=== PATIENT | female | born 1950 | race Asian ===

== ENCOUNTER 2017-04-02 15:17 | Inpatient (IN) | payer MEDICARE, BC ==
[~2017-04-02] VITALS: Ht 170.2 cm; Wt 68.0 kg
[2017-04-02 15:30] VITALS: BP 120/52
--- NOTE | 2017-04-02 15:30 | Emergency Room Report ---
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 Presenting with abdominal pain Patient was at surgeons office today, had drain removed, 20 minutes after and she drained was removed the patient experienced intense throbbing right lower cautery pain. Leroy very cold and clammy. Subjective chills. Pain has improved since coming to the emergency room. Some nausea no vomiting. Patient states that prior to the removal of the drain she had regular postop pain, but this pain is very different Allergies: Coded Allergies: CIPROFLOXACIN (Verified Allergy, Unknown, 04/02/17) PENICILLINS (Verified Allergy, Unknown, 04/02/17) SULFA (SULFONAMIDE ANTIBIOTICS) (Verified Allergy, Unknown, 04/02/17) Patient History Past Medical History: see triage record Past Surgical History: none Pertinent Family History: none Last Menstrual Period: n/a Reviewed Nursing Documentation: PMH: Agreed, PSxH: Agreed Nursing Documentation-PMH Past Medical History: No History, Except For Hx Diabetes: Yes - dm2-insulin dep Review of Systems All Other Systems: negative except mentioned in HPI Physical Exam Vital Signs Date Time Temp Pulse Resp B/P (MAP) Pulse Ox O2 Delivery O2 Flow Rate FiO2 04/02/17 15:07 98.1 81 16 114/69 98 Room Air Sp02 EP Interpretation: reviewed, normal General Appearance: alert, GCS 15, non-toxic, moderate distress Head: normocephalic, atraumatic Eyes: bilateral eye normal inspection, bilateral eye PERRL, bilateral eye EOMI ENT: normal ENT inspection, normal pharynx, normal voice, moist mucus membranes Neck: normal inspection, full range of motion, supple Respiratory: normal inspection, lungs clear, normal breath sounds, no respiratory distress, no retraction, no wheezing, speaking full sentences, chest symmetrical Cardiovascular #1: normal inspection, regular rate, rhythm, no edema, normal capillary refill Cardiovascular #2: 2+ radial (R), 2+ radial (L) Gastrointestinal: non-distended, other - healing surgical scar on abdomen,TTP RLQ , vountary guarding, no rebound Musculoskeletal: normal inspection, back normal, normal range of motion, non- tender Neurologic: normal inspection, alert, oriented x3, responsive, motor strength/ tone normal, sensory intact, normal gait, speech normal Psychiatric: normal inspection, judgement/insight normal, memory normal Skin: normal inspection, normal color, no rash, warm/dry, well hydrated, normal turgor Medical Decision Making Diagnostic Impression: Primary Impression: Abdominal pain Additional Impression: Post-operative complication ER Course 66-year-old female, recent pancreatic neuroendocrine tumor resection, now with abdominal pain after drain was pulled today at surgeon's office Differential Diagnosis: Complication of tumor resection/drain, bleed Plan: Basic labs, ua, ekg pain control, IVF CT abdo pelvis with IV contrast ER course: Patient has remained stable during ED stay. CT showing post op changes but cannot rule out early intraabdominal abscess ceftriaxone given (patient has had it before without issues) Discussed with Dr Melendez patient's surgeon, and shared decision making with family, we will admit patient overnight Disposition: Patient requires admission for abdominal pain, possible developing abscess Patient admitted to med surg under Dr Miller who is aware of patient and has been in contact with Dr Melendez Please note that this Emergency Department Report was dictated using [employer] appellate law clerk technology software, occasionally this can lead to erroneous entry secondary to interpretation by the dictation equipment EKG Diagnostic Results EP Interpretation: Yes Rate: normal Rhythm: NSR ST Segments: T-wave flattening lateral leads ASA given to patient: no Rhythm Strip EP Interpretation: Yes Rate: 75 Rhythm: NSR, no PVCs, no ectopy Laboratory Tests Test 04/02/17 15:40 04/02/17 16:58 White Blood Count 5.9 K/UL (4.8-10.8) Red Blood Count 3.76 M/UL (4.20-5.40) L Hemoglobin 11.4 G/DL (12.0-16.0) L Hematocrit 36.7 % (37.0-47.0) L Mean Corpuscular Volume 98 FL (80-99) Mean Corpuscular Hemoglobin 30.3 PG (27.0-31.0) Mean Corpuscular Hemoglobin Concent 31.1 G/DL (32.0-36.0) L Red Cell Distribution Width 11.1 % (11.6-14.8) L Platelet Count 288 K/UL (150-450) Mean Platelet Volume 4.9 FL (6.5-10.1) L Neutrophils (%) (Auto) 70.5 % (45.0-75.0) Lymphocytes (%) (Auto) 19.7 % (20.0-45.0) L Monocytes (%) (Auto) 6.6 % (1.0-10.0) Eosinophils (%) (Auto) 2.0 % (0.0-3.0) Basophils (%) (Auto) 1.2 % (0.0-2.0) Sodium Level 138 MMOL/L (136-145) Potassium Level 3.7 MMOL/L (3.5-5.1) Chloride Level 102 MMOL/L (98-107) Carbon Dioxide Level 25 MMOL/L (21-32) Anion Gap 11 mmol/L (5-15) Blood Urea Nitrogen 8 mg/dL (7-18) Creatinine 0.8 MG/DL (0.55-1.30) Estimate Glomerular Filtration Rate > 60 mL/min (>60) Glucose Level 150 MG/DL (74-106) H Calcium Level 9.0 MG/DL (8.5-10.1) Total Bilirubin 0.3 MG/DL (0.2-1.0) Aspartate Amino Transferase (AST) 18 U/L (15-37) Alanine Aminotransferase (ALT) 19 U/L (12-78) Alkaline Phosphatase 67 U/L (46-116) Total Protein 7.3 G/DL (6.4-8.2) Albumin 2.9 G/DL (3.4-5.0) L Globulin 4.4 g/dL Albumin/Globulin Ratio 0.7 (1.0-2.7) L Lipase 316 U/L (73-393) Urine Color Pending Urine Appearance Pending Urine pH Pending Urine Specific [place] Pending Urine Protein Pending Urine Glucose (UA) Pending Urine Ketones Pending Urine Occult Blood Pending Urine Nitrite Pending Urine Bilirubin Pending Urine Urobilinogen Pending Urine Leukocyte Esterase Pending CT/MRI/US Diagnostic Results CT/MRI/US Diagnostic Results : Imaging Test Ordered: CT abdo pelvis with IV contrat Impression CT ABDOMEN & PELVIS With Contrast: Distended gallbladder. Mild biliary prominence. Stent in pancreatic duct. No radiopaque cholelithiasis or choledocholithiasis. Please correlate clinically for cholecystitis or biliary obstruction. Small irregular fluid in the right upper abdomen which may be postop versus infection/inflammation, cannot exclude small developing abscess. No appendicitis, SBO, or diverticulitis. No hydronephrosis or ureteral calculus. Right pleural effusion. Radiologist: Tobin Lara M.D. Last Vital Signs Date Time Temp Pulse Resp B/P (MAP) Pulse Ox O2 Delivery O2 Flow Rate FiO2 04/02/17 15:07 98.1 81 16 114/69 98 Room Air Disposition: ADMITTED INPATIENT Condition: Serious TamikooKelley M.D. Apr 02, 2017 15:30
[2017-04-02 16:17] LABS: BASOPHILS % (AUTO) 1.2 % (0.0-2.0); LYMPHOCYTES % (AUTO) 19.7 % (20.0-45.0); MEAN CORPUSCULAR HEMOGLOBIN 30.3 PG (27.0-31.0); MEAN CORPUSCULAR HGB CONC 31.1 G/DL (32.0-36.0); MEAN CORPUSCULAR VOLUME 98 FL (80-99); MEAN PLATELET VOLUME 4.9 FL (6.5-10.1); MONOCYTES % (AUTO) 6.6 % (1.0-10.0); NEUTROPHILS % (AUTO) 70.5 % (45.0-75.0); PLATELET COUNT 288 K/UL (150-450); RED BLOOD COUNT 3.76 M/UL (4.20-5.40); RED CELL DISTRIBUTION WIDTH 11.1 % (11.6-14.8); WHITE BLOOD COUNT 5.9 K/UL (4.8-10.8)
[2017-04-02 16:36] LABS: ALANINE AMINOTRANSFERASE 19 U/L (12-78); ALBUMIN/GLOBULIN RATIO 0.7 (1.0-2.7); ANION GAP 11 mmol/L (5-15); ASPARTATE AMINO TRANSFERASE 18 U/L (15-37); CARBON DIOXIDE 25 MMOL/L (21-32); CHLORIDE 102 MMOL/L (98-107); CREATININE 0.8 MG/DL (0.55-1.30); GLOMERULAR FILTRATION RATE > 60 mL/min (>60); LIPASE 316 U/L (73-393); POTASSIUM 3.7 MMOL/L (3.5-5.1); SODIUM 138 MMOL/L (136-145); TOTAL PROTEIN 7.3 G/DL (6.4-8.2)
[2017-04-02] MEDS ORDERED: DiphenhydrAMINE 50mg/ml Inj IVP ONE (16:45)
[2017-04-02 17:00] VITALS: BP 127/61
[2017-04-02] MEDS ORDERED: Morphine Sulfate 4mg/ml Inj IVP ONE (17:30)
[2017-04-02 17:51] LABS: APPEARANCE,URINE CLEAR; KETONES,URINE NEGATIVE (NEGATIVE); LEUKOCYTE ESTERASE ,URINE NEGATIVE (NEGATIVE); NITRITE,URINE NEGATIVE (NEGATIVE); PH,URINE 7 (4.5-8.0); PROTEIN,URINE NEGATIVE (NEGATIVE); UROBILINOGEN,URINE NORMAL MG/DL (0.0-1.0)
[2017-04-02] MEDS ORDERED: cefTRIAXone 1 GM in NS 55 ML IVPB ONE (19:15)
[2017-04-02 19:35] VITALS: BP 122/73
[2017-04-02] MEDS: NovoLOG Insulin Flexpen SUBQ SCH (21:00)
[2017-04-02] MEDS ORDERED: Morphine Sulfate 10mg/ml Inj IVP PRN (21:00)
[2017-04-02] MEDS ORDERED: Morphine Sulfate 2mg/ml Inj IVP PRN (21:00)
[2017-04-02] MEDS ORDERED: Miralax 17gm pkt ORAL PRN (21:00)
[2017-04-02] MEDS: D5 1/2NS 500 ML IV SCH (21:17)
[2017-04-02] MEDS: Heparin 5000 units/ml inj SUBQ SCH (22:00)
[2017-04-03] VITALS: BP 114/63
[2017-04-03] MEDS: D5 1/2NS 500 ML IV SCH ×4 (01:15→13:15)
[2017-04-03] MEDS ORDERED: traMADol 50mg tab ORAL PRN ×2 (03:45→13:15)
[2017-04-03 04:00] VITALS: BP 98/67
[2017-04-03] MEDS ORDERED: Morphine Sulfate 2mg/ml Inj IVP PRN (04:00)
[2017-04-03] MEDS ORDERED: Aspirin Baby 81mg ORAL SCH (05:15)
[2017-04-03] MEDS ORDERED: METFORMIN HCL5000 GM MC (05:18)
[2017-04-03] MEDS ORDERED: RANEXA1000 MG ORAL (05:18)
[2017-04-03] MEDS ORDERED: TRAMADOL HCL100 M2 ORAL (05:18)
[2017-04-03] MEDS ORDERED: ASPIR 8181 MG ORAL (05:18)
[2017-04-03] MEDS ORDERED: COREG3.125 MG ORAL (05:18)
[2017-04-03] MEDS ORDERED: Aspirin EC 81mg tab ORAL SCH (05:30)
[2017-04-03] MEDS ORDERED: LEVEMIR FL100 UNIT/1 SUBQ (05:38)
[2017-04-03] MEDS: NovoLOG Insulin Flexpen SUBQ SCH ×2 (05:49→12:19)
[2017-04-03 07:12] LABS: ALANINE AMINOTRANSFERASE 26 U/L (12-78); ALBUMIN/GLOBULIN RATIO 0.7 (1.0-2.7); ANION GAP 3 mmol/L (5-15); ASPARTATE AMINO TRANSFERASE 30 U/L (15-37); CALCIUM 9.1 MG/DL (8.5-10.1); CARBON DIOXIDE 30 MMOL/L (21-32); CHLORIDE 100 MMOL/L (98-107); GLOMERULAR FILTRATION RATE 55.7 mL/min (>60); POTASSIUM 4.4 MMOL/L (3.5-5.1); SODIUM 133 MMOL/L (136-145); TOTAL PROTEIN 7.1 G/DL (6.4-8.2)
[2017-04-03 07:15] LABS: BASOPHILS % (AUTO) 0.9 % (0.0-2.0); EOSINOPHILS % (AUTO) 1.6 % (0.0-3.0); LYMPHOCYTES % (AUTO) 16.7 % (20.0-45.0); MEAN CORPUSCULAR HGB CONC 33.6 G/DL (32.0-36.0); MEAN CORPUSCULAR VOLUME 98 FL (80-99); MEAN PLATELET VOLUME 5.8 FL (6.5-10.1); MONOCYTES % (AUTO) 6.6 % (1.0-10.0); NEUTROPHILS % (AUTO) 74.2 % (45.0-75.0); PLATELET COUNT 254 K/UL (150-450); RED BLOOD COUNT 3.57 M/UL (4.20-5.40); RED CELL DISTRIBUTION WIDTH 11.1 % (11.6-14.8); WHITE BLOOD COUNT 6.2 K/UL (4.8-10.8)
[2017-04-03 08:00] VITALS: BP 107/65
[2017-04-03] MEDS ORDERED: metFORMIN 500mg tab ORAL SCH ×2 (08:00→09:00)
[2017-04-03] MEDS: Heparin 5000 units/ml inj SUBQ SCH (08:40)
--- NOTE | 2017-04-03 09:35 | Diagnostic Imaging Report ---
Clinical Indication: Abdominal pain, history of neuroendocrine pancreatic tumor resection 3 weeks ago, recent surgical drain removal Technique: No oral contrast utilized, per emergency room physician request IV administration nonionic contrast. Venous phase spiral acquisition obtained through the abdomen and pelvis. Multiplanar reconstructions were generated. Total dose length product 613 mGycm. CTDIvol(s) 11 mGy. Dose reduction achieved using automated exposure control Comparison: None Findings: The gallbladder is distended. No gallstones are demonstrated. There is equivocal minimal gallbladder wall thickening. However, a small irregular fluid collection with a somewhat thick enhancing rim is seen surrounding the gallbladder fundus. This measures approximately 6 cm transverse by 2 cm AP by 1 cm craniocaudad. There is also some adjacent thickening of the fascia immediately adjacent to the tip of the right hepatic lobe. The common bile duct is dilated, measuring 13 mm in diameter, and there is very mild central intrahepatic biliary ductal dilatation. No downstream obstructing lesion is demonstrated. However, there is a stent within the pancreatic duct. Metallic foreign bodies within the pancreatic head may represent vascular embolization coils. There is a bilobed 12 mm focus of low attenuation within the pancreatic head adjacent to one of the coils. No focal liver lesion demonstrated. No other definite pancreatic abnormality demonstrated. The spleen, adrenals, kidneys are unremarkable. No hydronephrosis, renal or ureteral calculi demonstrated. The bladder demonstrates equivocal mild wall thickening. The uterus is diffusely prominent without definite focal abnormality. Large varices are seen in the left adnexal region, and there is dilatation of the left ovarian vein. No definite pelvic mass or adenopathy. There is no evidence of diverticulosis or diverticulitis. The appendix is normal. No small bowel distention. No free or loculated intraperitoneal air or fluid is evident. The distal esophagus, stomach, duodenum are unremarkable. There is a small to moderate right-sided pleural effusion. There is resultant compressive atelectasis of the right lung base. The left lung base is clear. Impression: Small irregular fluid collection with a thick enhancing rim surrounding the gallbladder fundus. Suspect sequela from recent surgery, possible residual from recent drain removal. Small abscess not excludable Evidence of prior pancreatic duct stent placement Other metallic foreign bodies within the pancreatic head may represent vascular embolization coils for surgical clip. Correlate with surgical history Dilated common bile duct, possibly related to the pancreatic stent. Could also be baseline for this patient has no other definite downstream obstruction lesion is demonstrated. Correlate with liver function tests, consider MRCP or nuclear medicine biliary scan for further evaluation Distended gallbladder. No gallstones. Consider ultrasound for further evaluation if clinically indicated Bilobed 12 mm focus low-attenuation within the pancreatic head. Is most likely sequela of recent surgery, small cystic neoplasm not completely excluded. Further followup recommended Right-sided pleural effusion. Associated basilar compressive atelectasis Left ovarian venous distention and left paraovarian varices, consistent with ovarian venous insufficiency. Correlate with any symptoms that might suggest pelvic congestion syndrome This agrees with the preliminary interpretation provided overnight by [facility] teleradiology service. The CT scanner at [facility] is accredited by the [employer] and the scans are performed using protocols designed to limit radiation exposure to as low as reasonably achievable to attain images of sufficient resolution adequate for diagnostic evaluation.
--- NOTE | 2017-04-03 10:14 | History & Physical ---
History and Physical History & Physicial dc summary dictated [id number] LISBETH SALCEDO M.D. Apr 03, 2017 10:14
--- NOTE | 2017-04-03 10:43 | Discharge Summary ---
Discharge Summary Hospital Course Date of Admission Apr 02, 2017 at 19:36 Date of Discharge Admitting Diagnosis POST OP PAIN HPI Lenore Ward is a 66 year old female who was admitted on Apr 02, 2017 at 19:36 for Post Operative Pain Discharge Discharge Disposition Patient was discharged to Discharge Diagnoses: LISBETH SALCEDO M.D. Apr 03, 2017 10:43
--- NOTE | 2017-04-03 10:46 | Discharge Instructions ---
Discharge Instructions Discharge Instructions Follow up with: Dr. coelho Call MD/Return to Hospital if: worsening abdominal pain. nausea, vomiting Diet: soft Resume Normal Activity?: Yes For Congestive Heart Failure Reminder Report to your physician any weight gain of 5 pounds or more in one week. LISBETH SALCEDO M.D. Apr 03, 2017 10:46
[2017-04-03 12:06] VITALS: BP 109/65
--- NOTE | 2017-04-03 15:10 | Cardiology Report ---
APPROVED REPORT EKG Measurement Heart [id number] MT [id number] Sinus rhythm with occasional premature ventricular complexes Nonspecific T wave abnormality Abnormal ECG
[2017-04-03] MEDS ORDERED: Levemir Flexpen SUBQ SCH (22:00)
[2017-04-04] MEDS ORDERED: Ranolazine 500mg tab ORAL SCH (09:00)
--- NOTE | 2017-04-04 09:15 | History and Physical Report ---
DATE OF ADMISSION: 04/02/2017 DATE OF SERVICE: 04/03/2017 REASON FOR ADMISSION: Abdominal pain. HISTORY OF PRESENT ILLNESS: This is a 66-year-old female with history of diabetes type 2, neuroendocrine tumor of the pancreas, status post pancreatic neuroendocrine tumor resection on 03/13/2017, status post pancreatic stent placement for prophylaxis against duct injury on 03/12/2017 who had a JULIA drain removed earlier today at surgeon's office and had 10/10 pain subsequently. She also had felt cold and clammy. She denies any nausea or vomiting. She was brought to the [facility] emergency room for further evaluation. She had a CT of her abdomen that showed a small area of fluid that is likely postsurgical and pancreatic stent, which was in place. However, no other findings that were significant. She states that her pain is now well-controlled and she required morphine twice in the emergency room, however, today has not required any pain medication. PAST MEDICAL HISTORY: Diabetes, heart disease, coronary spasms, and pancreatic neuroendocrine tumor, status post resection. PAST SURGICAL HISTORY: As above. MEDICATIONS: Reviewed in [employer]. ALLERGIES: Ciprofloxacin, penicillin, and sulfa. SOCIAL HISTORY: The patient does not smoke, drink alcohol, or use any drugs. FAMILY HISTORY: No family history. REVIEW OF SYSTEMS: A 12-point review of systems is negative except for pertinent positives mentioned above. PHYSICAL EXAMINATION: GENERAL: No acute distress. The patient is alert, awake and oriented x3. VITAL SIGNS: Temperature is 98.1 degrees, pulse is 68, respiratory rate 18, blood pressure 107/55, and O2 saturation is 100% on room air. HEENT: Normocephalic/atraumatic. NECK: Supple. No JVD. LUNGS: Clear to auscultation bilaterally. CARDIOVASCULAR: Regular rate and rhythm. Normal S1 and S2. ABDOMEN: Prior central surgical scar is seen and clean, dry, and intact. She has no tenderness. There is no distention. EXTREMITIES: No clubbing, cyanosis, or edema. SKIN: No rashes. The patient has not been jaundiced. PSYCHIATRIC: Appropriate mood and affect. NEUROLOGIC: The patient can move all extremities. No deficits on my exam. LABORATORY AND DIAGNOSTIC DATA: Imaging, a CT abdomen and pelvis shows small irregular fluid collection with a thick enhancing rim surrounding the gallbladder fundus likely secondary to surgery, residual recent drain removal, evidence of prior pancreatic duct stent placement, dilated common bile duct, likely related to the pancreatic stent, and distended gallbladder. Labs, BMP, sodium 133, potassium 4.4, chloride 100, CO2 is 30, BUN 6, creatinine 1, and glucose 296. Albumin is 2.8. LFTs are within normal limits. Lipase is 847. Urinalysis negative. CBC, white count 6.2, hemoglobin 11.8, and platelet count is 254. ASSESSMENT: 1. Abdominal pain, status post JULIA drain removal. 2. Pancreatic neuroendocrine tumor, status post resection. 3. History pancreatic stent. 4. Diabetes type 2. 5. History of heart disease, coronary spasms. PLAN: 1. Admit to Medical/Surgical. 2. Monitor LFTs. 3. We will discuss case with . . 4. Pain control. 5. Resume home medications. Elias Miller MD DR: DARRIN/ JOB#: [id number] CC:
--- NOTE | 2017-04-04 12:28 | Discharge Summary ---
Discharge Summary Hospital Course Date of Admission Apr 02, 2017 at 19:36 Date of Discharge Apr 03, 2017 at 15:08 Admitting Diagnosis POST OP PAIN HPI Lenore Ward is a 66 year old female who was admitted on Apr 02, 2017 at 19:36 for Post Operative Pain Hospital Course [id number] Discharge Discharge Disposition Patient was discharged to Home (01) Discharge Diagnoses: Discharge Instructions Discharge Instructions Follow up with: Dr. laquita Barry MD/Return to Hospital if: worsening abdominal pain. nausea, vomiting Madison Arango NP Apr 04, 2017 12:28
--- NOTE | 2017-04-05 04:16 | Discharge Summary 2 SIG ---
DATE OF ADMISSION: 04/02/2017 DATE OF DISCHARGE: 04/03/2017 BRIEF HOSPITAL COURSE: The patient is a 66-year-old female with history of type 2 diabetes, neuroendocrine tumor of the pancreas, status post pancreatic neuroendocrine tumor resection on 03/13/2017, status post pancreatic stent placement for prophylaxis against duct injury on 03/12/2017, who had a JULIA drain removed earlier the day of admission at surgeon's office, developed abdominal pain 03/19. Subsequently, she also felt cold and clammy. She was brought to [facility] Emergency Room. She had a CAT scan of the abdomen and showed a small area of fluid that is likely postsurgical and pancreatic stent was in place. She required morphine twice in the emergency room. LFTs were within normal limit. Lipase was 847. She was admitted to medical floor for postoperative complication. She was given pain management and was continued on home medications. Symptoms eventually improved. Following day, she did not require any pain medication. Due to rapid improvement in the patient's symptoms, the patient was discharged home. Advised to follow up with PMD in a week. FINAL DIAGNOSES: 1. Abdominal pain, status post Geovanni-Murphy drain removal. 2. Pancreatic neuroendocrine tumor, status post resection. 3. History of pancreatic stent. 4. Diabetes type 2. 5. Heart disease with coronary spasms. DISPOSITION: The patient was discharged home. DISCHARGE MEDICATIONS: Refer to medication list. FOLLOWUP: The patient was advised to follow up with PMD and surgery in a week. Elias Miller MD I have been assigned to dictate discharge summary on this account and I was not involved in the patient's management. Madison Arango N.P. DR: Natan JOB#: [id number] CC: NATHALIE
[2017-04-05] MEDS ORDERED: Ranolazine 500mg tab ORAL SCH (09:00)
== END 2017-04-03 15:08 | disposition home or self-care (01) | DRG 948 ==
LOC: EDBD 15:17 → EMR 15:45 → 3E 19:36 → EDBEDREQ 20:09
DX: G89.18 Other acute postprocedural pain (principal); E11.9 Type 2 diabetes mellitus without complications; R10.9 Unspecified abdominal pain; I51.9 Heart disease, unspecified; Z88.0 Allergy status to penicillin; Z88.2 Allergy status to sulfonamides
CPT/HCPCS: 36415; 74177; 80053; 81003; 82150; 82962; 83690; 85025; 87081; 93005; 99285; J1815; J2405; S5561